=== PATIENT | female | born 1990 | race Caucasian/White ===

== ENCOUNTER 2020-09-15 14:02 | Inpatient (IN) | payer OTHER ==
[2020-09-15] VITALS (8 sets, daily range): BP systolic 116–132; BP diastolic 60–81
[~2020-09-15] VITALS: Ht 162.6 cm; Wt 104.8 kg
[2020-09-15] MEDS ORDERED: PENICILLIN G POTASSIUM IV 5 MU in D5W MINI-BAG PLUS 100 ML IV STA (14:20)
[2020-09-15] MEDS ORDERED: OXYTOCIN DRIP 30 UNITS in IV 1 EA IV SCH (14:20)
[2020-09-15] MEDS ORDERED: LACTATED RINGER'S 1000 ML IV STA (14:20)
[2020-09-15] MEDS ORDERED: VITA500C24 PO (14:22)
[2020-09-15] MEDS ORDERED: PRENTAB9 PO (14:22)
[2020-09-15] MEDS ORDERED: ASPI81CH33 PO (14:22)
--- NOTE | 2020-09-15 14:45 | HPEPDOC ---
Obstetrical History & Physical General Date of Admission Sep 15, 2020 at 14:02 History of Present Illness 30 yo @ 39W0d who is admitted for Oligohydramnios and Decreased mo vements after presenting to clinic for GERARDO. patient reports some contractions. she denies any VB, LOF. on exam in clinic she was 250/-3. Information Provided By: Patient Care Care: Good Care Dating Final EDC: Sep 22, 2020 Final EDC by: LMP, 1st trimester (US) Estimated Date of Confinement: Sep 22, 2020 EGA at Admission: 39 Antepartum Course Diagnos(e)s 1. GBS positive- no PCN allergies 2. KESHAV at 38 weeks 3. Single elevated BP in clinic 4. hx of pre e in prior 5. Obesity 6. HX of depression 7. Oligohydramnios, ABBY 3.3cm in clinic today Past Medical History Past Obstetrical History : Past Obstetrical History: Multigravida Type of Delivery: Spontaneous Vaginal Del. Complications: No DRAMATIC READER History: No pertinent history Past Medical History Medical History obesity Surgical History: Denies/None, Donalds teeth Family History Significant Family History: No pertinent family hx Social History Marital Status: Family situation: Spouse/partner home * Smoker: non-smoker Alcohol: Denies Drugs: denies Abuse Violence Screening Have you been hit/kicked/slapp: No Have you been sexually assault: No Allergies Coded Allergies: No Known Allergies (Unverified , 09/15/20) Medications Scheduled Ascorbic Acid (Vitamin C) 500 Mg Capsule, 1 CAP PO DAILY Aspirin (Aspirin) 81 Mg Tab.chew, 1 TAB PO DAILY for pain No.137/Iron/Folic Acd ( Vitamin Tablet) 1 Each Tablet, 1 TAB PO DAILY Physical Examination Physical Examination GENERAL: Alert and oriented times three. BREAST: . ABDOMEN: Gravid and non-tender to touch. FETUS: Is vertex (VTX) by sterile vaginal examination (SVE),and US in clinic HEART RATE: Regular rate and rhythm. EXTREMITIES: No edema. SVE: 250/-3 in clinic Laboratory Data 24H LABS Laboratory Tests 2 09/15/20 14:16: Serology Scanned Report Hepatitis B Testing Urine Culture: Other (gbs) Pertinent Laboratoy Data Blood Type: B+ RBC Antibody Screen: Negative HIV: Negative Hepatitis B: Negative Hepatitis C: Unknown Rapid Plasma Reagin: Nonreactive Rubella: Immune Varicella: Immune Chlamydia/Gonorrhea: Negative Group B Streptococcus: Positive Glucose Tolerance Test: 121 Anatomy Ultrasound Placenta Location: Anterior Normal Anatomy: Yes Steroid Therapy Steroid Therapy: No Vaginal Examination Dilation: 2cm Effacement: 50% Station: -3 Cervical Consistency: Firm Cervical Position: Posterior Presentation: Cephalic presentation Assessment Heart Rate (FHR): 135 Variability: Moderate Accelerations: Positive Decelerations: None Tocometer Contractions: Yes Frequency: irregular Multi-drug resistant Organism: No history of MDRO Assessment/Plan Assessment 30 yo @ 39W0d who is admitted for Oligohydramnios and Decreased movements after presenting to clinic for GERARDO. patient reports some contractions. she denies any VB, LOF. on exam in clinic she was 2/50/-3. APC 1. GBS positive- no PCN allergies 2. KESHAV at 38 weeks 3. Single elevated BP in clinic 4. hx of pre e in prior 5. Obesity 6. HX of depression 7. Oligohydramnios, ABBY 3.3cm in clinic today Plan Admit and orient. Rehab Tech and consent. Diet: REGULAR WHILE ON CERVICAL RIPENING, CHANGE TO CLEARS WHEN START PITOCIN Group B Streptococcus (GBS) Positive- start penicillin treatment Labs and intravenous (IV) per unit protocol. Counseled on Pitocin and induction of labor (IOL). Lactated Ringers (LR): Bolus 1000 mL, then at 125 mL/hr. Anticipate [normal spontaneous delivery ()]. C-S as appropriate. Labor and Delivery Counseling Plan will be to deliver your baby through the vagina with possible assistance of forceps or vacuum device if needed for maternal or indications. Forceps a nd vacuum are devices that can assist with vaginal delivery when normal pushing efforts cannot achieve delivery on their own or when delivery is needed in an emergency for baby's well-being. Medications may be required to induce or augment (help) your labor in order to achieve a vaginal delivery. An episiotomy may be required to help your baby to delivery vaginally. You may also require repair of any lacerations or tears of your vagina or vulva that are caused by delivery. In some cases, emergencies can occur that require an emergency section delivery so quickly that there may not be enough time to stop and complete consent forms for section. Understand that if this occurs, your providers will discuss the need for a section with you before they proceed with surgery. section is the delivery of your baby through an incision in your abdomen. In some situations, section may be safer to mom and baby than continuing labor and is only performed when clinically indicated. Risks of vaginal delivery include but are not limited to: Bleeding, infection, injury to the vagina, pelvic structures, injury to baby, damage to the uterus, reactions to anesthesia, uterine rupture, risk of hysterectomy for life threatening bleeding, or . Medications used to induce or augment labor may increase your risk for infection, uterine tachysystole, uterine rupture, heart rate abnormalities, need for emergency delivery or possible hysterectomy, and hemorrhage. Additional risks for use of forceps and vacuum include: increased risk of perineal and vaginal lacerations, risk of urinary or bowel incontinence, increased risk of injury to baby with bruising, scratches, hematomas on the head, or intracranial bleeding. Teresa verbalizes understanding of these risks and elects to proceed with her labor at this location. She also consents to blood products for transfusion should they become necessary. All patient and questions answered. LILIANA LOZADA MD Sep 15, 2020 14:44
[2020-09-15 15:02] LABS: HEMATOCRIT 36.3 % (36.0-47.0); HEMOGLOBIN 12.3 g/dl (12.0-15.5); MEAN CORPUSCULAR HEMOGLOBIN 30.1 pg (27.0-33.0); MEAN CORPUSCULAR HGB CONC 33.9 g/dl (32.0-36.5); PLATELET COUNT, AUTOMATED 270 10^3/uL (150-450); RED BLOOD COUNT 4.08 10^6/uL (4.00-5.40); WHITE BLOOD COUNT 22.6 10^3/uL (4.0-10.0)
[2020-09-15] MEDS: miSOPROStol 50MCG 1/2 TABLET PO SCH ×2 (15:16→21:18)
[2020-09-15] MEDS: PENICILLIN G POTASSIUM IV 2.5 MU in IV 1 EA IV SCH ×2 (18:43→23:23)
[2020-09-15] MEDS: LR 1,000 ML IV SCH (22:35)
[2020-09-16] VITALS (16 sets, daily range): BP systolic 119–151; BP diastolic 64–100
[2020-09-16] MEDS: miSOPROStol 50MCG 1/2 TABLET PO SCH (03:00)
[2020-09-16] MEDS ORDERED: FENTANYL 2MCG/ML ROPIVACAINE 0.2% IN 0.9% NACL 100ML IVBAG As Ordered ONE (03:21)
[2020-09-16] MEDS: PENICILLIN G POTASSIUM IV 2.5 MU in IV 1 EA IV SCH (03:25)
[2020-09-16] MEDS: LR 1,000 ML IV SCH (03:28)
--- NOTE | 2020-09-16 04:01 | IPNPDOC ---
Obstetrical Progress Note Date of Service Sep 16, 2020 Subjective 30yo at 39+1wks admitted for IOL for oligohydramnios and report of DFM. She reports her contractions have increased in frequency and her water recently broke. Objective Vital Signs Date Time Temp Pulse Resp B/P (MAP) Pulse Ox O2 Delivery O2 Flow Rate FiO2 09/15/20 19:43 98.6 115 18 122/69 (86) Assessment Heart Rate Tracing: Category I Tocometer Contractions: Yes Frequency: regular, every 2-2 min. Sterile Vaginal Examination Dilation: 5 cm Effacement (%): 80% Station: -1 Cervical Consistency: Soft Cervical Position: Anterior Postion/Presentation: Cephalic presentation Assessment and Plan Status: Reassuring Group B Streptococcus: Positive Anticipate: Vaginal Delivery Additional Comments Patient requested epidural placement for worsening painful ctx's, anesthesia consulted. SROM confirmed of clear fluid. FHRT cat I. Patient has made excellent progress on cytotec alone. Will plan for expectant . MAUREEN GALICIA DO Sep 16, 2020 04:01
[2020-09-16] MEDS ORDERED: OXYTOCIN 30 UNITS IN 0.9% NaCl 500ML IV BAG (J2590) As Ordered ONE (04:11)
--- NOTE | 2020-09-16 04:34 | DNPDOC ---
[facility] Delivery Note Delivery Note DATE OF DELIVERY: [id number] PREDELIVERY DIAGNOSIS: 39+1/7 weeks' gestation and labor. POST DELIVERY DIAGNOSIS: Delivered. PROCEDURE: Spontaneous vaginal delivery MOTHERS HELPER: Dr. Maureen Galicia ANESTHESIA: Epidural. ESTIMATED BLOOD LOSS: 50 mL. FINDINGS: 7 pound 15 ounce 3610g male infant, Score 8/9, clear fluid, no nuchal cord, marginal cord insertion noted. DELIVERY SUMMARY: Teresa was receiving epidural when she began having intense vaginal pressure. Upon reposition to lithotomy, exam notable for c/c/+4 presentation. Gloves were quickly donned and delivery of a term male completed. Presentation was OA with restitution to ROT with left shoulder anterior position. Anterior shoulder and body delivered spontaneously. No nuchal cord. No meconium appreciated. with good tone and vigorous cry therefore placed on maternal abdomen where infant was dried. Pitocin IV bolus initiated. Inspection revealed no lacerations. After 6 minutes of delayed cord clamping, three vessel cord clamped x2 and cut by FOB. Third stage spontaneous with intact placenta notable for a marginal cord insertion. Fundal massage notable for hemostasis and firm uterine tone. EBL 50ml. Mother and infant stable and bonding upon my leaving the room. MAUREEN GALICIA DO Sep 16, 2020 04:33
[2020-09-16] MEDS ORDERED: NALOXONE INJ 0.4MG/1ML VIAL (J2310 PER 1MG) IV PRN (04:45)
[2020-09-16] MEDS ORDERED: LACTATED RINGER'S 1000 ML IV PRN (04:45)
[2020-09-16] MEDS ORDERED: EPIDURAL COMMENT XX SCH (04:45)
[2020-09-16] MEDS ORDERED: diphenhydrAMINE 50MG/ML VIAL (J1200) IV PRN (04:45)
[2020-09-16] MEDS ORDERED: EPIDURAL/PCA KEYS XX PRN (04:45)
[2020-09-16] MEDS ORDERED: FENTANYL/ROPIVACAINE/NACL BAG 100 ML EPIDURAL SCH (04:45)
[2020-09-16] MEDS ORDERED: REFRIGERATOR IV KEYS XX PRN (04:45)
[2020-09-16] MEDS ORDERED: ePHEDrine SULFATE 25 MG/5 ML(5MG/ML) SYRINGE IV PRN (04:45)
[2020-09-16] MEDS ORDERED: ONDANSETRON 4MG/2ML VIAL IV PRN (04:45)
[2020-09-16] MEDS ORDERED: BOOSTRIX/ADACEL VACCINE (DIPHTH/PERTUSS/ACELL/TETANUS) 0.5ML SYR IM ONE (09:00)
[2020-09-17 06:00] VITALS: BP 126/71
--- NOTE | 2020-09-17 06:10 | IPNPDOC ---
Progress Note Date of Service: Sep 17, 2020 Day#: 1 Progress Note SUBJECT: Ms. Medina is a 30yo day 1 after uncomplicated vaginal delivery and uncomplicated . She has been ambulating, voiding spontaneously without issue and tolerating regular diet. Breast feeding without issue. Reports lochia is like a normal period. Patient is ambulating well. Reports some cramping with . Denies any pain. Voiding and stooling without difficulty. OBJECTIVE: VITAL SIGNS: Within normal limits, afebrile. Alert and oriented times three. No increased work of breathing Non-tachycardic Abdomen: Fundus firm at U-2. Soft, NTTP. Minimal lochia per patient ASSESSMENT: Ms. Medina is a 30yo day 1 after uncomplicated vaginal delivery and uncomplicated . Vitals within normal limits, afebrile, hemodynamically stable with no evidence of infection. PLAN: 1. Discharge to home today. 2. Tylenol and Motrin for pain. 3. Encourage breast feeding and ambulation. 4. vasectomy is planned, reports will use condoms in interm 5. Routine PP visit in 6 weeks in clinic. 6. Discussed return precautions at length. VS, I&O, 24H, Fishbone Vital Signs/I&O Vital Signs Date Time Temp Pulse Resp B/P (MAP) Pulse Ox O2 Delivery O2 Flow Rate FiO2 09/16/20 18:00 98.1 89 16 119/64 (82) 09/16/20 06:00 97 Room Air I&O- Last 24 Hours up to 6 AM 09/17/20 06:01 Intake Total 3821 ml Output Total 800 ml Balance 3021 ml JESUS ESTRELLA DO Sep 17, 2020 06:10
--- NOTE | 2020-09-17 06:13 | OBDS ---
[facility] Obstetrical Discharge Sum. A/P, Post Course List any complications SUBJECT: Ms. Medina is a 30yo day 1 after uncomplicated vaginal delivery and uncomplicated . 7 pound 15 ounce 3610g male , Score 8/9, clear fluid, no nuchal cord, marginal cord insertion noted. She has been ambulating, voiding spontaneously without issue and tolerating regular diet. Breast feeding without issue. Reports lochia is like a normal period. Patient is ambulating well. Reports some cramping with . Denies any pain. Voiding and stooling without difficulty. OBJECTIVE: VITAL SIGNS: Within normal limits, afebrile. Alert and oriented times three. No increased work of breathing Non-tachycardic Abdomen: Fundus firm at U-2. Soft, NTTP. Minimal lochia per patient ASSESSMENT: Ms. Medina is a 30yo day 1 after uncomplicated vaginal delivery and uncomplicated . Vitals within normal limits, afebrile, hemodynamically stable with no evidence of infection. PLAN: 1. Discharge to home today. 2. Tylenol and Motrin for pain. 3. Encourage breast feeding and ambulation. 4. vasectomy is planned, reports will use condoms in interm 5. Routine PP visit in 6 weeks in clinic. 6. Discussed return precautions at length. JESUS ESTRELLA DO Sep 17, 2020 06:13
== END 2020-09-17 11:25 | disposition home or self-care (01) | DRG 807 ==
LOC: M LDI 14:02 → M OBS 09-16 05:59
PROVIDERS: ADMIT Obstetrics & Gynecology
PROC: 3E0P7GC Introduction of Other Therapeutic Substance into Female Reproductive, Via Natural or Artificial Opening (ICD-10-PCS; 2020-09-15)
PROC: 10E0XZZ Delivery of Products of Conception, External Approach (ICD-10-PCS; principal; 2020-09-16)
DX: O41.03X0 Oligohydramnios, third trimester, not applicable or unspecified (principal); Z37.0 Single live birth; Z3A.39 39 weeks gestation of pregnancy; O36.8130 Decreased fetal movements, third trimester, not applicable or unspecified; O99.824 Streptococcus B carrier state complicating childbirth; O99.214 Obesity complicating childbirth; E66.9 Obesity, unspecified